=== PATIENT | female | born 1990 | race Caucasian/White ===

== ENCOUNTER 2020-06-01 04:15 | Outpatient (CLI) | payer BC, SELFPAY ==
--- NOTE | 2020-06-01 | DI.US_ITS ---
EXAM: US OB 2-3 TRIMESTER CLINICAL HISTORY: SURVEY,Z34.81. TECHNIQUE: Transabdominal obstetrical ultrasound performed. COMPARISON: No exams were available for comparison FINDINGS: Transabdominal obstetrical ultrasound performed. FINDINGS: Number of fetuses: One. position: Variable. heart rate: 141 bpm. Placental location: Anterior no evidence of previa. Amniotic fluid index: Amount of fluid is within normal limits. ANATOMICAL SURVEY: Within normal limits. BIOMETRIC DATA: BPD: 4.4cm HC: 16.6cm AC: 13.8cm FL: 3.0cm Cisterna Magna: 4 mm Cerebellum: 1.9 cm EFW: 281 grms 60% Composite Age: 19 weeks 2 days EDC by US: 10/24/2020 Heart Rate: 141BPM IMPRESSION: 1. Single live intrauterine gestation as above. 2. Normal anatomic survey. DATA REPOSITORY:
== END 2020-06-01 04:35 ==
PROVIDERS: PCP Nurse Practitioner Family; Visit Provider Advanced Practice Midwife
DX: Z34.82 Encounter for supervision of other normal pregnancy, second trimester (principal)
CPT/HCPCS: 76805